=== PATIENT | female | born 1950 | race Caucasian/White ===

== ENCOUNTER 2016-10-09 10:40 | Emergency (ER) | payer OTHER ==
[~2016-10-09] VITALS: Ht 157.5 cm; Wt 74.9 kg
[2016-10-09] MEDS ORDERED: LO-DOSE ASPIRIN81 M2 PO (11:09)
[2016-10-09] MEDS ORDERED: MULTI-DAY VITA1 EACH PO (11:09)
[2016-10-09 13:53] VITALS: BP 192/98
== END 2016-10-09 13:54 | disposition home or self-care (01) ==
LOC: EME 10:40
DX: H57.12 Ocular pain, left eye (principal); H57.8 Other specified disorders of eye and adnexa; Z87.891 Personal history of nicotine dependence
CPT/HCPCS: 70450; 99281; 99283

== ENCOUNTER 2017-03-16 10:25 | Observation (INO) | payer OTHER ==
[~2017-03-16] VITALS: Ht 154.9 cm; Wt 76.4 kg
[~2017-03-16 10:25] MED LIST: LO-DOSE ASPIRIN81 M2 PO; MULTI-DAY VITA1 EACH PO
[2017-03-16 11:34] LABS: HEMATOCRIT 40.3 % (36.0-46.0); MCH 31.5 PG (29.0-34.0); MCHC 33.3 G/DL (30.0-36.0); MCV 94.8 FL (83-99); MEAN PLAT.VOLUME 10.1 uM^3 (9.5-12.4); PLATELET COUNT 329 K/uL (156-360); RBC DIS.WIDTH-CV 12.7 % (11.8-14.6); RBC DIS.WIDTH-SD 43.7 % (39-53); RED BLOOD COUNT 4.25 M/uL (3.80-5.20); WHITE BLOOD COUNT 6.8 K/uL (4.1-10.2)
[2017-03-16 11:40] LABS: CHLORIDE 109 mEq/L (99-109); POTASSIUM 3.9 mEq/L (3.7-5.4); SODIUM 143 mEq/L (136-147)
[2017-03-16 11:42] LABS: GLUCOSE 117 mg/dL (70-99)
[2017-03-16 11:43] LABS: ANION GAP 8 MEQ/L (2-14)
[2017-03-16 11:46] LABS: GFR ESTIMATE (CALCULATED) > 59 mL/min/; UREA NITROGEN (BUN) 14 mg/dL (9-23)
[2017-03-16 11:48] LABS: TROP-I INTERPRETATION NEGATIVE; TROPONIN-I < 0.01 ng/mL (0.0-0.30)
[2017-03-16] MEDS ORDERED: ROSUVASTATIN CAL5 MG PO (12:48)
[2017-03-16] MEDS ORDERED: AMLODIPINE BESYL5 MG PO (12:49)
[2017-03-16] MEDS ORDERED: FENOFIBRATE160 M1 PO (12:49)
[2017-03-16] MEDS ORDERED: CLOPIDOGREL75 MG PO (12:49)
[2017-03-16] MEDS ORDERED: NEXIUM40 MG PO (12:50)
[2017-03-16] MEDS ORDERED: BENADRYL ALLERG25 MG PO (12:51)
[2017-03-16] MEDS ORDERED: FISH OIL 1,0001 EAC7 PO (12:53)
[2017-03-16 14:38] VITALS: BP 194/81
[2017-03-16 14:39] VITALS: BP 175/79; BP 176/78
[2017-03-16 16:00] VITALS: BP 146/72
[2017-03-16 17:55] LABS: TROP-I INTERPRETATION NEGATIVE; TROPONIN-I < 0.01 ng/mL (0.0-0.30)
[2017-03-16 22:00] VITALS: BP 160/88
[2017-03-17 00:10] LABS: TROP-I INTERPRETATION NEGATIVE; TROPONIN-I < 0.01 ng/mL (0.0-0.30)
[2017-03-17 00:15] VITALS: BP 175/72
[2017-03-17 00:17] VITALS: BP 152/86
[2017-03-17 04:33] VITALS: BP 160/74
[2017-03-17 05:44] LABS: HEMATOCRIT 36.4 % (36.0-46.0); MCHC 32.4 G/DL (30.0-36.0); MCV 95.5 FL (83-99); MEAN PLAT.VOLUME 10.3 uM^3 (9.5-12.4); PLATELET COUNT 301 K/uL (156-360); RBC DIS.WIDTH-CV 12.9 % (11.8-14.6); RBC DIS.WIDTH-SD 45.4 % (39-53); RED BLOOD COUNT 3.81 M/uL (3.80-5.20); WHITE BLOOD COUNT 6.5 K/uL (4.1-10.2)
[2017-03-17 06:09] LABS: ALKALINE PHOSPHATASE 56 IU/L (3-129); ANION GAP 7 MEQ/L (2-14); CHLORIDE 108 MEQ/L (99-109); GFR ESTIMATE (CALCULATED) > 59 mL/min/; GLUCOSE 110 mg/dL (70-99); HDL CHOLESTEROL 37 MG/DL (Desirable>=50); LDL CHOLESTEROL 120 mg/dL (Desirable<100); NON-HDL CHOLESTEROL 156 mg/dL (Desirable<160); SAMPLE HEMOLYSIS CHECK 0; SAMPLE ICTERIC CHECK 0; SAMPLE LIPEMIA CHECK 0; SODIUM 142 MEQ/L (136-147); TOTAL BILIRUBIN 0.3 MG/DL (0.0-1.0); TOTAL CHOLESTEROL 193 mg/dL (Desirable<200); TRIGLYCERIDES 182 MG/DL (Normal: <150); UREA NITROGEN (BUN) 11 mg/dL (9-23)
[2017-03-17 07:00] VITALS: BP 171/80
== END 2017-03-17 11:08 | disposition home or self-care (01) ==
LOC: EME 10:25 → EDOF 12:18 → ENRESERV 12:19 → 5WEST 14:10
PROVIDERS: Emergency Medicine; Physician Assistant
DX: R07.9 Chest pain, unspecified (principal); R55 Syncope and collapse; K21.9 Gastro-esophageal reflux disease without esophagitis; E78.5 Hyperlipidemia, unspecified; I10 Essential (primary) hypertension; R20.0 Anesthesia of skin; R20.2 Paresthesia of skin; Z98.890 Other specified postprocedural states; Z82.49 Family history of ischemic heart disease and other diseases of the circulatory system; Z83.3 Family history of diabetes mellitus; Z87.891 Personal history of nicotine dependence; Z79.82 Long term (current) use of aspirin
CPT/HCPCS: 70450; 71010; 80048; 80053; 80061; 84484; 85027; 93005; 99281; 99284; G0378; J1650; J7030